=== PATIENT | male | born 1980 | race Hispanic/Latino ===

== ENCOUNTER 2018-10-17 07:50 | Emergency (ER) | payer OTHER ==
[2018-10-17] MEDS ORDERED: LIDOCAINE HCL 1% 20 ML VIAL ONE (08:22)
== END 2018-10-17 08:47 | disposition home or self-care (01) ==
LOC: EDH 07:50
DX: L02.01 Cutaneous abscess of face (principal)
CPT/HCPCS: 10060

== ENCOUNTER 2018-10-19 12:51 | Emergency (ER) | payer OTHER ==
[2018-10-19 13:52] LABS: BASOPHILS % (AUTO) 0.9 % (0.0-5.0); EOSINOPHILS % (AUTO) 2.5 % (0.0-8.0); HEMATOCRIT 46.8 % (42-54); LYMPHOCYTES % (AUTO) 14.6 % (21.0-51.0); MEAN CORPUSCULAR HEMOGLOBIN 29.2 pg (27.0-33.0); MEAN CORPUSCULAR HGB CONC 34.4 g/dL (32.0-36.0); MEAN CORPUSCULAR VOLUME 84.8 fL (79-99); MONOCYTES % (AUTO) 5.7 % (3.0-13.0); NEUTROPHILS % (AUTO) 76.3 % (40.0-77.0); PLATELET COUNT (AUTO) 293 K/uL (130-400); RED BLOOD CELL COUNT(AUTO) 5.52 MIL/uL (4.50-6.20); RED CELL DISTRIBUTION WIDTH 13.3 % (11.0-15.5); WHITE BLOOD COUNT (AUTO) 13.3 K/uL (4.8-10.8)
[2018-10-19] MEDS ORDERED: CLINDAMYCIN 300 MG/D5W 50 ML 50 ML IV ONE (13:53)
== END 2018-10-19 14:49 | disposition home or self-care (01) ==
LOC: EDH 12:51
DX: Z48.01 Encounter for change or removal of surgical wound dressing (principal)
CPT/HCPCS: 36415; 85025; 87070; 87076; 87077; 87186; 96365; 99283; J3490

== ENCOUNTER 2022-02-09 21:45 | Emergency (ER) | payer BC, OTHER ==
[~2022-02-09] VITALS: Ht 165.1 cm; Wt 136.1 kg
[2022-02-09] MEDS ORDERED: LIDOCAINE HCL MPF 1% 5ML VIAL ONE (22:55)
[2022-02-09] MEDS ORDERED: SULF1TAB42 PO (23:13)
[2022-02-09] MEDS ORDERED: SULFAMETHOX-TMP DS 800/160 TAB PO ONE (23:30)
[2022-02-10 00:07] VITALS: BP 144/87
== END 2022-02-10 00:09 | disposition home or self-care (01) ==
LOC: EDH 21:45
DX: L02.213 Cutaneous abscess of chest wall (principal)
CPT/HCPCS: 10060; 99283; J3490